=== PATIENT | male | born 1980 | race Caucasian/White ===

== ENCOUNTER 2016-05-11 05:21 | Day surgery (SDC) | payer OTHER ==
[~2016-05-11] VITALS: Ht 172.7 cm; Wt 98.9 kg
--- NOTE | ~2016-05-11 | O ---
[facility] [place] [address] OPERATIVE REPORT Name: RON MYRICK Room #: 150-9 [facility] M.R.#: [id number] Admission: 05/11/16 Attend Phys: Naseem Loco MD Discharge: Date of : 82 Report #: [id number] THIS REPORT FOR: //name// CC: Dawood Loco DATE OF SERVICE: 05/11/2016 PREOPERATIVE DIAGNOSIS: Left knee failed anterior cruciate ligament with tunnel expansion. POSTOPERATIVE DIAGNOSIS: Left knee failed anterior cruciate ligament with tunnel expansion. OPERATIVE PROCEDURE: Left knee arthroscopy, debridement of ACL stump, followed by application of graft to tunnel, both femoral and tibial. SURGEON: Naseem Loco MD. TRANSPORTATION DRIVER: Fantasma Corbin, nurse practitioner. INDICATIONS FOR TRANSPORTATION DRIVER: During the course of operation, extensive manipulation, retraction, and limb positioning was required. This was afforded to me by my critical care physician assistant. ANESTHETIC: General. INDICATIONS: See hospital H and P. DESCRIPTION OF PROCEDURE: After adequate general anesthesia had been obtained, the patient's left lower extremity was prepped and draped in the usual meticulous sterile fashion. Limb was exsanguinated with gravity. Tourniquet inflated to 300 torr. Superomedial portal was established by first infiltrating with 0.5% Naropin, and then making a stab incision with #11 blade. Inflow cannula placed. The knee was insufflated with fluid. Anterolateral and anteromedial portals were established, utilizing the same technique. Complete diagnostic arthroscopy was performed. Medial compartment demonstrated evidence of prior medial meniscectomy. There was no recurrent tear chondral surfaces were reasonably well preserved. The ACL had few fibers remaining with it, clearly very lax and nonfunctional. These were debrided with a shaver. A notchplasty was performed to allow access to the femoral tunnel. Lateral compartment demonstrated no significant abnormality of the meniscus. He did have, however, a chondral lesion and central portion of weightbearing dome with very small but grade 3, with a very small punctate area of grade 4 change. 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 Trochlea was preserved. At this time, his previously made incision for his ACL was we reopened, subQ divided sharply. Periosteum was incised. The staple was removed. Using C-arm guidance, the previous tunnel was identified. A small cortical window was created, and then we meticulously removed all of the soft tissue from the expanded tunnel using a combination of the shaver, curette, and reamer. With this, we were back to good healthy appearing bone. This was irrigated copiously. Then, a guide pin was placed up on the femoral side. He had had a transtibial reconstruction, and so we were able to thread a guide pin up the central portion of his tunnel, and ream it to 7 mm to remove the majority of the soft tissue and the tunnel. The curette was used to remove the remainder of the soft tissue. This tunnel was likewise irrigated copiously. At this time, a combination of DBM and cancellous chips were mixed together. This was delivered up into the femoral tunnel and compressed into position. We did the same procedure on the tibial side with good fill of the tibial tunnel. The wound was irrigated copiously, both intraarticularly and extra-articularly. The periosteum was reapproximated with 2-0 Vicryl. Subq closed with 2-0 Monocryl. Skin closed with a running subcuticular 2-0 Prolene. Scope portals closed with 4-0 nylon. Steri-Strips applied. Sterile compressive dressing applied. Tourniquet deflated. By: [id number] Naseem Loco MD /kong
[~2016-05-11 05:21] MED LIST: ACCUNEB SO1.25 MG/1 INH; CENTRUM SILVER1 EAC2 PO; FLONASE 0.05%50 MCG NASAL; TRAMADOL 50 MG50 MG PO; VITAMINC500 PO; ZYRTEC10 M5 PO
[2016-05-11 10:30] VITALS: BP 124/80
[2016-05-11 16:23] VITALS: BP 124/80
== END 2016-05-11 16:50 | disposition home or self-care (01) ==
LOC: OR 05:21 → TBA 05:21 → OR 09:36
DX: T84.89XA Other specified complication of internal orthopedic prosthetic devices, implants and grafts, initial encounter (principal); J45.909 Unspecified asthma, uncomplicated; G47.33 Obstructive sleep apnea (adult) (pediatric); F17.210 Nicotine dependence, cigarettes, uncomplicated; Y83.2 Surgical operation with anastomosis, bypass or graft as the cause of abnormal reaction of the patient, or of later complication, without mention of misadventure at the time of the procedure; Z98.890 Other specified postprocedural states
CPT/HCPCS: 50010; 50101; 50386; 50405; 50612; 51014; 51038; 51320; 51412; 52001; 52282; 53347; 54170; 62110; 62900; 70005